=== PATIENT | female | born 1995 | race Caucasian/White ===

== ENCOUNTER 2021-10-15 16:29 | Emergency (ER) | payer BC, SELFPAY ==
[2021-10-15 17:15] VITALS: BP 117/88; PULSE 92; RESP 21; TEMP 37.3; O2SAT 100; BMI 27.8
[2021-10-15 17:33] LABS: UTC Strep Screen (Rapid) Positive (Negative)
--- NOTE | 2021-10-15 17:40 | HMH.EDUTC ---
[facility] [place] Disposition Clinical Impression: Strep throat Disposition: Home, Self-Care Condition on Discharge: Good Instructions: DI for Strep Throat, Strep Throat Additional Instructions: *Monitor Temp, Over the counter Motrin or Tylenol as directed/as needed Tylenol every 4 hours and Motrin every 6 hours (as long as your family doctor has told you that you can take it) for fever or pain. and straight to ER if unable to lower temp less than 101.0 after medication given *Warm salt water gargles may help to soothe the throat *Throat Lozenges *Warm fluids like tea with honey may help to soothe the throat *Sleep elevated *Humidifier/Vaporizer *If you did not take Penicillin shot or was unable to, start taking antibiotic immediately and make sure that you take it for the FULL length of time although you should start to feel better in 24-48 hours *change toothbrush and toothpaste 24-48 hours after starting to take antibiotics so you do not reinfect yourself Monitor Temp. Tylenol and/or Ibuprofen as needed. ER if fever is no less than 101 despite alternating Tylenol and Ibuprofen * Encourage fluids, water, Gatorade, powerade, pedialyte if infant/toddler/or child *Cold fluids, popsicles and ice cream may feel good on his throat Follow up IMMEDIATELY for new or worsening symptoms or no Noticeable improvement over the next 48-72 hours. 911 for difficulty breathing or swallowing Prescriptions: Azithromycin [Z-Hiren 250mg Tab] 250 mg PO DIRECTED #6 tab Transmission Status: Pending to [facility] #[id number] Referrals: Aden Majano MD [Primary Care Provider] - As needed Forms: Work/School Release Time of Disposition: 17:45 Medical Decision Making - Hussein Inquiry Pt receiving controlled substance: No Hussein was queried for this patient: No Vital Signs: 10/15/21 17:15 Temperature 99.1 F Temperature Source Oral Pulse Rate [Right Brachial] 92 H Respiratory Rate 21 Blood Pressure [Right Arm] 117/88 Blood Pressure Mean [Right Arm] 97 Blood Pressure Source [Right Arm] Automatic Cuff Blood Pressure Position [Right Arm] Sitting 02 Sat by Pulse Oximetry 100 Oxygen Delivery Method Room Air - Lab Data Lab results reviewed: Yes: I reviewed the patient's lab results. Lab Results 10/15/21 17:22: Strep Scn Rapid Clinic Positive A [facility] [place] HPI - General Stated complaint: sore throat Time Seen by Provider: 10/15/21 17:40 Mode of Arrival: Ambulatory Source of Information: Patient Limitations: No Limitations Description of Symptoms (Recalled from Triage Doc. by RN): PATIENT C/O SORE THROAT AND SWOLLEN LYMPH NODES SINCE TUESDAY EVENING HEENT Symptoms (Recalled from RN notes): Yes Resp Symptoms (Recalled from RN notes): No Skin Symptoms (Recalled from RN notes): No MS Symptoms (Recalled from RN notes): No Functional Status (Recalled from RN notes): WNL - History of Present Illness Provider Complaint: Patient state that she has been having sore throat and swollen lymph nodes since Tuesday that has continued to get worse State that she was worried that she may have strep throat or COVID so she came in to get checked out - Related Data Home Medications Medication Instructions Recorded Confirmed etonogestrel 68 mg subdermal SUBDERMAL 04/13/21 implant Previous Rx's Medication Instructions Recorded norgestimate-ethinyl estradiol 1 tab PO DAILY 30 Days #30 tab 01/28/21 0.18 mg/0.215mg/0.25mg-35 mcg(28)tablet Azithromycin [Z-Hiren 250mg Tab] 250 mg PO DIRECTED #6 tab 10/15/21 Allergies Allergy/AdvReac Type Severity Reaction Status Date / Time amoxicillin [AMOXICILLIN] Allergy Intermediate Verified 04/13/21 14:59 Sulfa (Sulfonamide Allergy Intermediate Verified 04/13/21 14:59 Antibiotics) [SULFA (SULFONAMIDE ANTIBIOTICS)] Penicillins Allergy Mild Verified 04/13/21 14:59 - Worker's Comp Is this a Worker's Comp case?: No [facility] History - Hepatitis A Screen Drug use hi
[2021-10-15 17:45] VITALS: BP 117/88; PULSE 92; RESP 21; TEMP 37.3; O2SAT 100
== END 2021-10-15 17:48 | disposition home or self-care (01) ==
PROVIDERS: Emergency Provider Nurse Practitioner; PCP Family Medicine
DX: J02.0 Streptococcal pharyngitis (principal)
CPT/HCPCS: 87880; 99202; G0463

== ENCOUNTER 2023-08-13 12:51 | Emergency (ER) | payer BC, SELFPAY ==
[2023-08-13 13:00] VITALS: BP 136/82; PULSE 74; RESP 19; TEMP 36.8; O2SAT 98; BMI 30.7
--- NOTE | 2023-08-13 13:22 | EXP.UTC ---
Discharge Plan Disposition Patient Disposition: Home, Self-Care Condition: Good Prescriptions Prescriptions: New azithromycin [Zithromax Z-Hiren] 250 mg tablet See Rx Instructions .ROUTE .COMPLEX 5 Days Qty: 6 0RF Rx Instructions: For 250 mg dose pack: take 500 mg today (day 1), then 250 mg for 4 days (days 2-5) methylprednisolone [Medrol (Hiren)] 4 mg tablets,dose pack See Rx Instructions .Route .COMPLEX 6 Days Qty: 21 0RF Rx Instructions: taper pack; No Action Nexplanon 68 mg implant 68 mg SUBDERMAL ONCE Referrals Follow up/Referrals: Marcial Alfaro MD [Primary Care Provider] - See instructions Activity Restrictions/Add. Instructions Additional Instructions/Restrictions: *Monitor Temp, Over the counter Motrin or Tylenol as directed/as needed Tylenol every 4 hours and Motrin every 6 hours (as long as your family doctor has told you that you can take it) for fever or pain. and straight to ER if unable to lower temp less than 101.0 after medication given *Warm salt water gargles may help to soothe the throat *Throat Lozenges? *Warm fluids like tea with honey may help to soothe the throat? *Sleep elevated *Humidifier/Vaporizer Start oral steriods tomorrow Your throat swab was sent for culture. Those results are typically sent to your primary care. Be sure to follow up in 2-3 days with your family doctor/primary care physician if no improvement so they can review those result and treat if necessary. If you don?t have a primary care doctor, I recommend you get one but in the mean time, you will have to return to a walk in clinic Follow up IMMEDIATELY for new or worsening symptoms or no Noticeable improvement over the next 48-72 hours. 911 for difficulty breathing or swallowing Clinical Impressions Clinical Impression: Pharyngitis Qualifiers: Pharyngitis/tonsillitis etiology: unspecified etiology Qualified Code(s): J02.9 - Acute pharyngitis, unspecified Instructions Patient Instructions: Sore Throat Discharge ED Provider: Debbie Eldridge [facility] [place] General Stated complaint: sore throat Mode of Arrival: Ambulatory Source of Information: Patient Limitations: No Limitations Time Seen by Provider: 08/13/23 13:22 Description of Symptoms (Recalled from Triage Doc. by RN): PATIENT C/O SORE THROAT AND NO VOICE X 4 DAYS HEENT Symptoms (Recalled from RN notes): Yes Resp Symptoms (Recalled from RN notes): No Skin Symptoms (Recalled from RN notes): No MS Symptoms (Recalled from RN notes): No Functional Status (Recalled from RN notes): WNL History of Present Illness Provider Complaint: Patient states that for the last 4 days she has been having sore throat and loss of voice that has continued States that this morning she got up and she wasnt able to talk so she came in to get checked Related Data Home Medications Medication Instructions Recorded Confirmed etonogestrel 68 mg subdermal 68 mg subdermal ONCE 04/13/21 08/13/23 implant (Nexplanon) Previous Rx's Medication Instructions Recorded azithromycin 250 mg tablet See Rx Instructions PO .COMPLEX 5 08/13/23 (Zithromax Z-Hiren) days #6 tabs methylprednisolone 4 mg tablets in See Rx Instructions .Route 08/13/23 a dose pack (Medrol (Hiren)) .COMPLEX 6 days #21 tabs Allergies Allergy/AdvReac Type Severity Reaction Status Date / Time amoxicillin [AMOXICILLIN] Allergy Intermediate Verified 04/13/21 14:59 Sulfa (Sulfonamide Allergy Intermediate Verified 04/13/21 14:59 Antibiotics) [SULFA (SULFONAMIDE ANTIBIOTICS)] Penicillins Allergy Mild Verified 04/13/21 14:59 Worker's Comp Is this a Worker's Comp case?: No [facility] Disclaimer: The information contained in this section may have been updated after the patient was seen, as this information can be updated by other users. Surgical History (Updated 08/13/23 @ 13:09 by Amanda Penn RN) [place] teeth removed Social
[2023-08-13 13:24] LABS: UTC Strep Screen (Rapid) Negative (Negative)
[2023-08-13 13:44] LABS: UTC Pregnancy Test, Urine Negative (Negative)
[2023-08-13 13:55] VITALS: BP 136/82; PULSE 74; RESP 19; TEMP 36.8; O2SAT 98
== END 2023-08-13 13:59 | disposition home or self-care (01) ==
PROVIDERS: Emergency Provider Nurse Practitioner; PCP Family Medicine
DX: J02.9 Acute pharyngitis, unspecified (principal); J04.0 Acute laryngitis
CPT/HCPCS: 81025; 87880; 96372; 99212; 99214; G0463

== ENCOUNTER 2024-08-27 15:21 | Emergency (ER) | payer BC, SELFPAY ==
[2024-08-27 16:00] VITALS: BP 139/85; PULSE 128; RESP 22; TEMP 37.4; O2SAT 95; BMI 30.1
--- NOTE | 2024-08-27 16:02 | ED_ITS ---
Discharge Plan Disposition Patient Disposition: Home, Self-Care Prescriptions Prescriptions: New azithromycin [Zithromax] 250 mg tablet 250 mg PO UD DOSE PK Qty: 6 0RF Rx Instructions: Take two (2) tablets today, then one (1) tablet days #2 thru #5 methylprednisolone 4 mg Tablets,Dose Pack 4 mg PO DIRECTED 6 Days Qty: 21 0RF Rx Instructions: Take 1 pack as directed for 6 days [id number] [Bromfed DM] 2-30-10 mg/5 mL Syrup 5 ml PO Q6H PRN (Reason: Cough) Qty: 240 0RF No Action levonorgestrel-ethinyl estrad [Aviane] 0.1-20 mg-mcg tablet 1 tab PO DAILY Qty: 84 4RF Referrals Follow up/Referrals: Marcial Alfaro MD [Primary Care Provider] - See instructions Activity Restrictions/Add. Instructions Additional Instructions/Restrictions: Drink plenty of fluids. Take tylenol or ibuprofen for pain or fever. Take the medications as directed. Follow up with your regular doctor. GO TO THE ER FOR ANY WORSENING SYMPTOMS Clinical Impressions Clinical Impression: Pharyngitis Qualifiers: Pharyngitis/tonsillitis etiology: unspecified etiology Qualified Code(s): J02.9 - Acute pharyngitis, unspecified Stand Alone Forms Stand Alone Forms: Work/School Release Instructions Patient Instructions: Sore Throat, DI for Pharyngitis/Tonsillopharyngitis -- Adult Print Language Print Language: Frisian Discharge ED Provider: Thaddeus Peters [facility] General Stated complaint: sore throat tonsil/neck pain Time Seen by Provider: 08/27/24 16:02 History of Present Illness Provider Complaint: She states that for the past 2 days she has had worsening sore throat, chills, low grade fever, and nausea. Related Data Previous Rx's ?Medication ?Instructions ?Recorded levonorgestrel-ethinyl estradiol 1 tab PO DAILY #84 tabs 04/26/24 0.1 mg-20 mcg tablet (Aviane) azithromycin 250 mg tablet 250 mg PO UD DOSE PK #6 tabs 08/27/24 (Zithromax) nlhzmsfliwppxns-fstwlmiobrlqadb-LI 5 ml PO Q6H PRN Cough #240 mL 08/27/24 2 mg-30 mg-10 mg/5 mL oral syrup (Bromfed DM) methylprednisolone 4 mg tablets in 4 mg PO DIRECTED 6 days #21 tabs 08/27/24 a dose pack Allergies Allergy/AdvReac Type Severity Reaction Status Date / Time amoxicillin (AMOXICILLIN) Allergy Intermediate Verified 04/26/24 08:51 Sulfa (Sulfonamide Allergy Intermediate Verified 04/26/24 08:51 Antibiotics) (SULFA (SULFONAMIDE ANTIBIOTICS)) Penicillins Allergy Mild Verified 04/26/24 08:51 [facility] Disclaimer: The information contained in this section may have been updated after the patient was seen, as this information can be updated by other users. Medical History No significant medical problems Surgical History [place] teeth removed Social History Smoking Status: Never smoker alcohol intake: never substance use type: denies use current occupational status: unemployed ROS Obtained: Yes All systems reviewed & no additional complaints except as documented Constitutional Constitutional: Reports chills and Reports fever(s) Eyes Eyes: Denies eye discharge ENT Ears, Nose, Mouth, and Throat: Reports as per HPI Cardiovascular Cardiovascular: Denies chest pain Respiratory Respiratory: Denies chest congestion and Reports cough Gastrointestinal Gastrointestingal: Reports nausea; Denies abdominal pain, constipation, cramping, diarrhea or vomiting Musculoskeletal Musculoskeletal: Denies arthralgias Integumentary/Breasts Skin/Breast: Denies rash Neurologic Neurologic: Denies paresthesias Physical Exam General General appearance: alert and in no apparent distress Head Head exam: atraumatic, normocephalic and normal inspection Eye Eye exam: Present normal appearance, PERRL and EOMI ENT ENT exam: Present mucous membranes moist and normal external ear exam Expanded ENT Exam TM/Canal exam: Bilateral TM: erythema and bulging Nose exam: Absent sinus tenderness Mouth exam: Present normal external inspection; Absent drooling Teeth exam: Present normal inspection Throat exam: Present tonsillar erythema, tonsillomegaly and tonsillar exudate Neck Neck exam: Present normal inspection, full ROM and trachea midline; Absent tenderness, meningismus or lymphadenopathy Chest Chest inspection: Present normal inspection and symmetric chest wall rise; Absent tenderness Respiratory Respiratory exam: Present normal lung sounds bilaterally; Absent respiratory distress, wheezes or stridor Cardiovascular Cardiovascular exam: Present regular rate and normal rhythm; Absent systolic murmur or diastolic murmur Abdominal Exam Abdominal exam: Present soft and normal bowel sounds; Absent distention, tenderness, guarding, rebound or rigidity Extremities Exam Extremities exam: Present normal inspection and normal capillary refill; Absent calf tenderness Back Exam Back exam: Present normal inspection and full ROM; Absent tenderness, CVA tenderness (R) or CVA tenderness (L) Neurological Exam Neurological exam: Present alert, oriented X3 and CN II-XII intact Psychiatric Psychiatric exam: Present normal affect and normal mood Skin Skin exam: Present warm, dry, intact and normal color Medical Decision Making Medical Records Medical records reviewed: No I reviewed the patient's medical records. Screening: Per USPSTF and CDC recommendations, given the prevalence of disease in our region, it is our hospital?s policy to screen for HIV and viral Hepatitis for all patients aged 18 and over and those with ongoing risk factors. Hussein Inquiry Pt receiving controlled substance: No
[2024-08-27 16:13] LABS: UTC Influenza A Antigen Negative (Negative); UTC Strep Screen (Rapid) Negative (Negative)
[2024-08-27 16:14] LABS: UTC Influenza B Antigen Negative (Negative)
[2024-08-27 16:37] VITALS: BP 139/85; PULSE 128; RESP 22; TEMP 37.4; O2SAT 95
== END 2024-08-27 16:39 | disposition home or self-care (01) ==
PROVIDERS: Emergency Provider Nurse Practitioner Family; PCP Family Medicine
DX: J02.9 Acute pharyngitis, unspecified (principal); R50.9 Fever, unspecified; R05.9 Cough, unspecified; R11.0 Nausea
CPT/HCPCS: 87804; 87880; 99212; G0381